=== PATIENT | female | born 1930 | race American Indian/Alaskan Native ===

== ENCOUNTER 2018-01-18 11:45 | Emergency (ER) | payer MEDICARE ==
--- NOTE | 2018-01-18 12:54 | Emergency Department Report ---
ED General Adult HPI - General Chief complaint: Dyspnea/Respdistress Stated complaint: WHEEZING,SOB, MUCUS IN LUNG Time Seen by Provider: 01/18/18 12:45 Source: patient, family Mode of arrival: Wheelchair Limitations: Other (patient is demented. Patient is a poor historian.) - History of Present Illness Initial comments: This is an 87-year-old female who is unknown to this provider previously. The patient has no complaints at this time. As per nursing documentation, past medical history includes congestive heart failure, dementia, diabetes, hypertension. Primary care doctor is Dr. Cannon; [phone] cardiology :Dr Swartz ( ). The patient is brought to the hospital by her son, who just got in from out of town, has not seen her in a year, and he brings her in for general evaluation. He thinks that her legs are swollen, and that she's been coughing and wheezing. The patient has no recollection of this, and cannot describe quality of her symptoms, exacerbating or relieving factors. -: unknown Location: left, right, lower extremity Radiation: other (per hpi) Quality: other (per hpi) Consistency: other (per hpi) Improves with: other (per hpi) Worsens with: other (per hpi) Associated Symptoms: cough, shortness of breath - Related Data Previous Rx's Medication Instructions Recorded Last Taken Type Levofloxacin [Levaquin TAB] 500 mg PO QDAY #6 tablet 01/18/18 Unknown Rx Torsemide [Demadex] 15 mg PO BID #45 tablet 01/18/18 Unknown Rx Allergies Allergy/AdvReac Type Severity Reaction Status Date / Time No Known Allergies Allergy Unverified 01/18/18 12:03 ED Review of Systems ROS: Stated complaint: WHEEZING,SOB, MUCUS IN LUNG Other details as noted in HPI Comment: Unobtainable due to pts medical conditions (poor historian. son doesnt know. called up [facility], they do not know) ED Past Medical Hx - Past Medical History Previous Medical History?: Yes Hx Hypertension: Yes Hx Congestive Heart Failure: Yes Hx Diabetes: Yes Hx Dementia: Yes - Surgical History Past Surgical History?: Yes Hx Open Heart Surgery: Yes Additional Surgical History: L Mastectomy, spinal surgery. - Social History Smoking Status: Former Smoker Substance Use Type: None - Medications Home Medications: Home Medications Medication Instructions Recorded Confirmed Last Taken Type Levofloxacin [Levaquin TAB] 500 mg PO QDAY #6 tablet 01/18/18 Unknown Rx Torsemide [Demadex] 15 mg PO BID #45 tablet 01/18/18 Unknown Rx ED Physical Exam - General Limitations: Other (dementia) General appearance: alert, in no apparent distress - Head Head exam: Present: atraumatic, normocephalic - Eye Eye exam: Present: normal appearance, EOMI - ENT ENT exam: Present: normal exam, normal orophraynx, mucous membranes moist, normal external ear exam - Neck Neck exam: Present: normal inspection, full ROM - Respiratory Respiratory exam: Present: rales (very faint rales noted at the bases). Absent : respiratory distress - Cardiovascular Cardiovascular Exam: Present: regular rate, normal rhythm, normal heart sounds. Absent: bradycardia, tachycardia, irregular rhythm, systolic murmur, diastolic murmur, rubs, gallop - GI/Abdominal GI/Abdominal exam: Present: soft, normal bowel sounds. Absent: distended, tenderness, guarding, rebound, rigid, pulsatile mass - Extremities Exam Extremities exam: Present: normal inspection, full ROM, normal capillary refill , pedal edema, other (2+ pulses noted in the bilateral upper, lower extremities. Compartments soft. No long bony tenderness. The pelvis is stable.). Absent: calf tenderness - Back Exam Back exam: Present: normal inspection, full ROM - Neurological Exam Neurological exam: Present: alert, CN II-XII intact, other (Extraocular movements intact. Tongue midline. No facial droop. Facial sensation intact to light touch in the V1, V2, V3 distribution bilaterally. 5 and 5 strength in 4 extremities.. Sensation is intact to light touch in 4 extremities.). Absent : motor sensory deficit - Psychiatric Psychiatric exam: Present: normal affect, normal mood - Skin Skin exam: Present: warm, dry, intact, normal color. Absent: rash ED Course Vital Signs 01/18/18 01/18/18 01/18/18 11:54 11:57 13:00 Temperature 98.1 F Pulse Rate 79 83 76 Respiratory 18 16 21 Rate Blood Pressure 112/59 92/45 92/45 Blood Pressure [Left] O2 Sat by Pulse 97 92 99 Oximetry 01/18/18 17:24 Temperature 98.1 F Pulse Rate 76 Respiratory 21 Rate Blood Pressure Blood Pressure 112/59 [Left] O2 Sat by Pulse 99 Oximetry - Reevaluation(s) Reevaluation #1: 01/18/18 14:58 Pharyngeal diagnoses, including but not limited to: Pneumonia, congestive heart failure, cardiorenal syndrome Assessment and plan: 87-year-old female with lower extremity edema, very faint rales, suspect congestive heart failure. Unknown what her baseline creatinine is. DVT study is negative. X-ray of the chest and inclusive. Noncontrast CT scan of the chest is pending at this time to better differentiate fluid overload versus pneumonia. Reevaluation #2: 01/18/18 15:01 Luis Swartz MD 5.0 2 [employer] reviews Channel Sales Director in the [place], [place] Address: [address] [place] [address]. [address] [place] [address], [address], [place] [address] Hours: Open now Add full hours Suggest an edit Reevaluation #3: 01/18/18 15:26 X-ray and noncontrast CT scan of the chest suggest a right-sided pneumonia. I had an extensive discussion with the patient's son. He does not want the patient to be admitted. He would prefer a trial of oral outpatient antibiotics. The patient is not air hungry and is not tachypneic, and she is not tachycardic and she is saturating appropriately on room air. I did discuss the risks of a precipitous decline with the patient's son, including the risk of respiratory compromise, arrest, cardiac arrest, and possible need for intubation, chest compressions, and central line placement subsequently if the patient did indeed decompensate. The patient's son verbalizes understanding to all of this, but it is his preference that the patient be given a trial of outpatient therapy, given her advanced age, and his goals of care. The patient' s son seems quite invested in his mother's care, and is reasonable to follow up , and indicates he will keep a close eye on the patient. He agrees to have the patient follow-up in 48 hours for repeat checkup/evaluation. 01/19/18 15:35 ED Medical Decision Making - Lab Data Result diagrams: 01/18/18 12:56 01/18/18 12:56 Vital Signs 01/18/18 01/18/18 01/18/18 11:54 11:57 13:00 Temperature 98.1 F Pulse Rate 79 83 76 Respiratory 18 16 21 Rate Blood Pressure 112/59 92/45 92/45 O2 Sat by Pulse 97 92 99 Oximetry Lab Results 01/18/18 01/18/18 01/18/18 Range/Units 12:56 12:56 12:56 WBC 8.9 (4.5-11.0) K/mm3 RBC 3.75 (3.65-5.03) M/mm3 Hgb 11.2 (10.1-14.3) gm/dl Hct 33.2 (30.3-42.9) % MCV 89 (79-97) fl MCH 30 (28-32) pg MCHC 34 (30-34) % RDW 15.7 H (13.2-15.2) % Plt Count 130 L (140-440) K/mm3 PT 13.7 (12.2-14.9) Sec. INR 1.00 (0.87-1.13) APTT 28.9 (24.2-36.6) Sec. Sodium 145 (137-145) mmol/L Potassium 3.8 (3.6-5.0) mmol/L Chloride 102.5 (98-107) mmol/L Carbon Dioxide 28 (22-30) mmol/L Anion Gap 18 mmol/L BUN 22 H (7-17) mg/dL Creatinine 1.9 H (0.7-1.2) mg/dL Estimated GFR 30 ml/min BUN/Creatinine Ratio 12 % Glucose 181 H (65-100) mg/dL Calcium 8.3 L (8.4-10.2) mg/dL NT-Pro-B Natriuret Pep 01928 H (0-900) pg/mL Urine Color (Yellow) Urine Turbidity (Clear) Urine pH (5.0-7.0) Ur Specific [place] (1.003-1.030) Urine Protein (Negative) mg/dL Urine Glucose (UA) (Negative) mg/dL Urine Ketones (Negative) mg/dL Urine Blood (Negative) Urine Nitrite (Negative) Urine Bilirubin (Negative) Urine Urobilinogen (<2.0) mg/dL Ur Leukocyte Esterase (Negative) Urine WBC (Auto) (0.0-6.0) /HPF Urine RBC (Auto) (0.0-6.0) /HPF U Epithel Cells (Auto) (0-13.0) /HPF Urine Bacteria (Auto) (Negative) /HPF Urine Mucus /HPF 01/18/18 Range/Units 13:17 WBC (4.5-11.0) K/mm3 RBC (3.65-5.03) M/mm3 Hgb (10.1-14.3) gm/dl Hct (30.3-42.9) % MCV (79-97) fl MCH (28-32) pg MCHC (30-34) % RDW (13.2-15.2) % Plt Count (140-440) K/mm3 PT (12.2-14.9) Sec. INR (0.87-1.13) APTT (24.2-36.6) Sec. Sodium (137-145) mmol/L Potassium (3.6-5.0) mmol/L Chloride (98-107) mmol/L Carbon Dioxide (22-30) mmol/L Anion Gap mmol/L BUN (7-17) mg/dL Creatinine (0.7-1.2) mg/dL Estimated GFR ml/min BUN/Creatinine Ratio % Glucose (65-100) mg/dL Calcium (8.4-10.2) mg/dL NT-Pro-B Natriuret Pep (0-900) pg/mL Urine Color Yellow (Yellow) Urine Turbidity Clear (Clear) Urine pH 5.0 (5.0-7.0) Ur Specific [place] 1.011 (1.003-1.030) Urine Protein 100 mg/dl (Negative) mg/dL Urine Glucose (UA) Neg (Negative) mg/dL Urine Ketones Neg (Negative) mg/dL Urine Blood Sm (Negative) Urine Nitrite Neg (Negative) Urine Bilirubin Neg (Negative) Urine Urobilinogen < 2.0 (<2.0) mg/dL Ur Leukocyte Esterase Lg (Negative) Urine WBC (Auto) 1.0 (0.0-6.0) /HPF Urine RBC (Auto) 3.0 (0.0-6.0) /HPF U Epithel Cells (Auto) 28.0 H (0-13.0) /HPF Urine Bacteria (Auto) 1+ (Negative) /HPF Urine Mucus Few /HPF - EKG Data 01/18/18 14:56 Normal sinus, 75 bpm, left axis deviation, left anterior fascicular block, right bundle branch block, high left ventricular voltage, motion artifact, not a stemi - Radiology Data Radiology results: report reviewed, image reviewed interpreted by me: X-ray of the chest, Print Report Referring Physician: DAVID DEMPSEY Patient Name: GABRIELA BARKER Date of : 1930 Sex: Female Report Date: 2018-01-18 Report Status: Finalized Findings [facility] [address] [place] [address] XRay Report Signed Patient: GABRIELA BARKER MR#: [id number] : 1930 Acct:[id number] Age/Sex: 87 / F ADM Date: 01/18/18 Loc: ED Attending Dr: Ordering Physician: DAVID DEMPSEY MD Date of Service: 01/18/18 Procedure(s): XR chest 1V ap Accession Number(s): [id number] cc: DAVID DEMPSEY MD Fluoro Time In Minutes: Single view chest: History: Shortness of breath. Findings: Marked cardiomegaly. Trachea is midline. Ill-defined density is noted in the right lower lobe adjacent to the chest wall. Normal CP angles. Impression: Infiltrate right lower lobe suggestive of pneumonitis.. Transcribed By: PTP Dictated By: CHRISTY GUTHRIE MD Electronically Authenticated By: CHRISTY GUTHRIE MD Signed Date/Time: 01/18/18 1332 [address] [facility] GABRIELA BARKER Female : 1930 MedRec# [id number] 01/18/18 14:05 - Radiology Dept. Note by DEVIN BOWDEN Acct Num: [id number] : 1930 Patient Age: 87 BLE VENOUS DUPLEX COMPLETED. VAS LAB PRELIMINARY REPORT; NO EVIDENCE OF DVT NOTED IN VESSELS/SEGMENTS EXAMINED. BLE GSV's LIGATED FOR PREVIOUS CABG SX. PHYSICIANS REPORT TO FOLLOW...(RSK) Initialized on 01/18/18 14:05 - END OF NOTE Critical care attestation.: If time is entered above; I have spent that time in minutes in the direct care of this critically ill patient, excluding procedure time. ED Disposition Clinical Impression: History of dyspnea, Extremity edema Disposition: DC-01 TO HOME OR SELFCARE Is pt being admited?: No Does the pt Need Aspirin: No Condition: Stable Additional Instructions: Increase patient's water pill, torsemide, to 15 mg twice daily. Follow up with the patient's primary care doctor or superintendent commissary or return to the ER in 2 days for a repeat checkup/evaluation. The patient's superintendent commissary information is located as follows: Continue Outpatient medications otherwise. Luis Swartz MD Channel Sales Director in the [place], [place] Address: [address] [place] [address], [address], [place] [address] Please note that the patient's laboratory studies and x-ray suggested pneumonia on the right lung field. In the very elderly complications of pneumonia can ensue and they can include disability, respiratory arrest, paralysis, and even . Therefore, it is very important that the patient receive close outpatient monitoring for her respiratory status, and if her breathing status changes, if she becomes lethargic or irritable or if she developed projectile vomiting, the patient should return to the ER right away. CT scan of the chest also suggested a nonspecific lesion in the kidney. This should be followed up by her primary care doctor within the next 4-6 weeks. Not following up for this as recommended may result in undiagnosed tumor, cancer , malignancy. Prescriptions: Levofloxacin [Levaquin TAB] 500 mg PO QDAY #6 tablet Torsemide [Demadex] 15 mg PO BID #45 tablet Referrals: PRIMARY CAREMD [Primary Care Provider] - 3-5 Days
[2018-01-18 13:28] LABS: Calcium 8.3 mg/dL (8.4-10.2)
[2018-01-18 13:50] LABS: Hematocrit 33.2 % (30.3-42.9); Hemoglobin 11.2 gm/dl (10.1-14.3); Mean Corpuscular HGB Conc 34 % (30-34); Mean Corpuscular Hemoglobin 30 pg (28-32); Mean Corpuscular Volume 89 fl (79-97); Platelet Count 130 K/mm3 (140-440); Red Blood Count 3.75 M/mm3 (3.65-5.03); Red Cell Distribution Width 15.7 % (13.2-15.2)
--- NOTE | 2018-01-18 13:55 | XRay Report ---
Single view chest: History: Shortness of breath. Findings: Marked cardiomegaly. Trachea is midline. Ill-defined density is noted in the right lower lobe adjacent to the chest wall. Normal CP angles. Impression: Infiltrate right lower lobe suggestive of pneumonitis..
[2018-01-18 13:58] LABS: Partial Thromboplastin Time 28.9 Sec. (24.2-36.6)
[2018-01-18 14:02] LABS: Bacteria,Urine 1+ /HPF (Negative); Bilirubin,Urine NEG (Negative); Blood,Urine SM (Negative); Color,Urine Yellow (Yellow); Mucus,Urine FEW /HPF; Urobilinogen,Urine < 2.0 mg/dL (<2.0)
[2018-01-18] MEDS ORDERED: LEVAQUIN PO ONE (15:30)
--- NOTE | 2018-01-18 15:46 | Cat Scan Report ---
FINAL REPORT EXAM: CT CHEST WO CON HISTORY: dyspnea TECHNIQUE: CT of chest without IV contrast. Coronal and sagittal reconstructed images provided. PRIORS: None currently available. FINDINGS: Focal consolidation in the lateral segment of the right middle lobe. Otherwise lungs are clear. No pneumothorax. No other consolidation. No effusion. No endobronchial lesions. Marked cardiomegaly. Valvular calcifications. Coronary artery disease. No pericardial effusion. Mildly prominent main pulmonary artery suggests pulmonary vascular congestion or hypertension. Mild hypertension suspected. [id number] aortic atherosclerotic disease. No aneurysm. Major branch arteries are within normal limits for noncontrast CT scan. Heterogenous thyroid gland. A distinct nodules not evident; however, nodules are not excluded. Axillary regions are unremarkable. No hilar mediastinal mass or adenopathy. Images of the esophagus are unremarkable. Small hiatal hernia. Partially imaged stomach is grossly unremarkable. Exophytic lesion partially imaged at the mid left kidney on series 2:121 measures 3.3 mm. No suspicious osseous lesions on this limited examination of the skeleton. Metastatic disease better evaluated with bone scan. Degenerative changes are present in the spine. Surgical artifacts in the sternum. IMPRESSION: Marked cardiomegaly. Suspect pulmonary hypertension. Differential diagnosis would include mild pulmonary vascular congestion. Right middle lobe pneumonia. Partially imaged lesion in the left mid kidney is indeterminate. Further evaluation with left renal ultrasound may be helpful if clinically indicated.
[2018-01-18] MEDS ORDERED: DEMADEX PO STA (15:47)
[2018-01-18 17:27] VITALS: BP 112/59
--- NOTE | 2018-01-19 08:25 | Vascular Lab Report ---
LOWER EXTREMITY VENOUS DUPLEX: REASON FOR EXAM: Pain and swelling of the lower extremities. COMMENTS ON THE RIGHT: All veins visualized are freely compressible without evidence of internal echogenicity. Flow is spontaneous and phasic throughout.The greater saphenous vein appears to be absent. COMMENTS ON THE LEFT: All veins visualized are freely compressible without evidence of internal echogenicity. Flow is spontaneous and phasic throughout. The greater saphenous vein appears to be absent. IMPRESSION: No evidence of acute or chronic deep venous thrombosis in either lower extremity.
== END 2018-01-18 17:00 | disposition home or self-care (01) ==
LOC: ED 11:45
DX: J98.09 Other diseases of bronchus, not elsewhere classified (principal); J18.9 Pneumonia, unspecified organism; I11.0 Hypertensive heart disease with heart failure; E11.9 Type 2 diabetes mellitus without complications; Z90.12 Acquired absence of left breast and nipple; Z87.891 Personal history of nicotine dependence
CPT/HCPCS: 36415; 71045; 71250; 80048; 81001; 83880; 85027; 85610; 85730; 93005; 93010; 93970